=== PATIENT | female | born 1975 ===

== ENCOUNTER 2019-05-18 11:47 | Emergency (ER) | payer OTHER ==
[~2019-05-18] VITALS: Ht 162.6 cm; Wt 113.4 kg
== END 2019-05-18 13:06 | disposition home or self-care (01) ==
LOC: ER 11:47
DX: F41.9 Anxiety disorder, unspecified (principal); F60.0 Paranoid personality disorder; I10 Essential (primary) hypertension
CPT/HCPCS: 99283